=== PATIENT | female | born 1940 | race Caucasian/White ===

== ENCOUNTER 2018-01-26 08:02 | Outpatient (CLI) ==
[2013-10-05 08:28] VITALS: BMI 33.6
--- NOTE | 2018-01-27 10:07 | MAMMO ---
EXAM: Bilateral digital screening mammogram (2-D and 3-D) History: Screening Comparison: Bilateral mammogram 03/01/2012 Findings: MLO and CC views of bilateral breasts demonstrate scattered fibroglandular breast parenchy ma. Stable benign bilateral breast calcifications. CAD was reviewed by the radiologist. Tomosynthes is was performed. There are no dominant masses, no suspicious microcalcifications and no architectur al distortions Impression: Benign stable mammogram. Recommend followup routine screening mammography in 1 year. BIRADS 2
== END 2018-01-26 08:03 | disposition home or self-care (01) ==
LOC: RAD 08:02
PROVIDERS: ATTEND Internal Medicine
DX: Z12.31 Encounter for screening mammogram for malignant neoplasm of breast (principal)
CPT/HCPCS: 77067

== ENCOUNTER 2018-10-03 09:09 | Outpatient (CLI) ==
[2013-10-05 08:28] VITALS: BMI 33.6
--- NOTE | 2018-10-03 09:46 | DI ---
EXAM: Two views of the chest. History: Cough. Comparison: Chest radiograph 10/05/2013 Findings: Heart size is normal. No focal consolidation. No appreciable pleural fluid and no pneumo thorax. No acute osseous abnormalities. Atherosclerotic vascular calcifications Impression: No acute cardiopulmonary process
== END 2018-10-03 09:10 | disposition home or self-care (01) ==
LOC: RAD 09:09
PROVIDERS: ATTEND Internal Medicine
DX: R05 Cough (principal); R19.4 Change in bowel habit

== ENCOUNTER 2018-10-05 07:48 | Outpatient (CLI) ==
[2013-10-05 08:28] VITALS: BMI 33.6
--- NOTE | 2018-10-05 10:29 | CT ---
EXAM: CT of the abdomen pelvis without contrast History: Change in bowel movements, urinary frequency, right lower quadrant abdominal pain. Technique: Multiplanar CT images through the abdomen pelvis were obtained without the administration of IV contrast Findings: Lung bases are free of consolidation. No acute osseous abnormalities. Bilateral L5 pars defects with grade 1 spondylolisthesis. Severe disc space narrowing at T12, L1 and L1-L2 with endpla te sclerosis and osteophyte formation. Severe disc space narrowing at L5-S1. 3 mm retrolisthesis of L1 on L2. No gallstones identified by CT. No focal liver or splenic lesions. No renal stones and no hydroneph rosis. 1.3 cm exophytic nodule projecting from the medial inferior pole of the left kidney. Mild at herosclerotic vascular calcifications. Bladder is not well distended. No bowel obstruction. No jane e air and no ascites. The appendix is not seen. There are no secondary to appendicitis. Uterus is not seen and likely has been surgically removed. No perirectal inflammation. Mild to moderate colon ic stool. Tiny hiatal hernia. No free air and no ascites. No abdominal aortic aneurysm. No pathol ogically enlarged lymph nodes. Impression: 1. No acute intra-abdominal or pelvic process. 2. Exophytic nodule of the left kidney as detailed above. Recommend further evaluation with renal u ltrasound. 3. Tiny hiatal hernia
== END 2018-10-05 07:49 | disposition home or self-care (01) ==
LOC: RAD 07:48
PROVIDERS: ATTEND Internal Medicine
DX: R05 Cough (principal); R19.4 Change in bowel habit